=== PATIENT | male | born 1945 | race Caucasian/White ===

== ENCOUNTER 2024-05-09 11:20 | Emergency (ER) | payer OTHER, MEDICARE ==
[~2024-05-09] VITALS: Ht 198.1 cm; Wt 109.0 kg
[2024-05-09] MEDS ORDERED: DIPHTH,PERTUSS(ACELL),TET VAC 0.5 ML SYRINGE IM ONE (12:00)
[2024-05-09] MEDS ORDERED: ACETAMINOPHEN 500 MG TAB PO ONE (13:15)
[2024-05-09 14:29] VITALS: BP 166/111
== END 2024-05-09 14:22 | disposition home or self-care (01) ==
LOC: ED 11:20
DX: S01.81XA Laceration without foreign body of other part of head, initial encounter (principal); I10 Essential (primary) hypertension; W01.0XXA Fall on same level from slipping, tripping and stumbling without subsequent striking against object, initial encounter; Z96.652 Presence of left artificial knee joint; Z88.5 Allergy status to narcotic agent
CPT/HCPCS: 12014; 70450; 72125; 90471; 90715; 99283-25; A9270